=== PATIENT | male | born 1950 | race Caucasian/White ===

== ENCOUNTER 2020-06-15 16:02 | Emergency (ER) | payer MEDICAID, MEDICARE ==
--- NOTE | 2020-06-15 16:23 | EDM.PDOC ---
ED HPI GENERAL MEDICAL PROBLEM - General Stated Complaint: dog bite Time Seen by Provider: 06/15/20 16:10 Source of Information: Reports: Patient History Limitations: Reports: No Limitations - History of Present Illness INITIAL COMMENTS - FREE TEXT/NARRATIVE: Patient presented to the ED because of a dog bite on his left hand. He sustained a 1.5 cm laceration over the dorsum of the left hand. His dog is UTD with immunizations. - Related Data Allergies Allergy/AdvReac Type Severity Reaction Status Date / Time lisinopril Allergy Hallucinati Verified 11/02/16 13:27 ons Home Meds: Home Meds Allopurinol [Zyloprim] 100 mg PO DAILY 11/02/16 [History] Furosemide [Lasix] 20 mg PO DAILY 11/02/16 [History] Levothyroxine 75 mcg PO ACBREAKFAST 11/02/16 [History] Metoprolol Succinate 50 mg PO BID 11/02/16 [History] amLODIPine [Norvasc] 2.5 mg PO DAILY 11/02/16 [History] Amoxicillin/Potassium Clav [Augmentin 875-125 Tablet] 1 each PO BID #20 tablet 06/15/20 [Rx] Past Medical History Cardiovascular History: Reports: Hypertension Musculoskeletal History: Reports: Other (See Below) Other Musculoskeletal History: 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 - looking at bilateral TKA in the future Endocrine/Metabolic History: Reports: Hypothyroidism Social & Family History - Family History Family Medical History: Noncontributory - Caffeine Use Caffeine Use: Reports: None ED ROS GENERAL - Review of Systems Review Of Systems: See Below Constitutional: Reports: No Symptoms HEENT: Reports: No Symptoms Respiratory: Reports: No Symptoms Cardiovascular: Reports: No Symptoms Endocrine: Reports: No Symptoms GI/Abdominal: Reports: No Symptoms : Reports: No Symptoms Musculoskeletal: Reports: No Symptoms Skin: Reports: Wound Neurological: Reports: No Symptoms Psychiatric: Reports: No Symptoms ED EXAM, GENERAL - Physical Exam Exam: See Below Exam Limited By: No Limitations General Appearance: Alert, No Apparent Distress Eye Exam: Bilateral Eye: PERRL Ears: Normal External Exam, Normal Canal Nose: Normal Inspection, Normal Mucosa Throat/Mouth: Normal Inspection, Normal Lips, Normal Teeth, Normal Gums Head: Atraumatic, Normocephalic Neck: Normal Inspection, Supple, Non-Tender, Full Range of Motion Respiratory/Chest: No Respiratory Distress, Lungs Clear, Normal Breath Sounds, No Accessory Muscle Use, Chest Non-Tender Cardiovascular: Normal Peripheral Pulses, Regular Rate, Rhythm, No Edema, No Gallop GI/Abdominal: Normal Bowel Sounds, Soft, Non-Tender, No Organomegaly Back Exam: Normal Inspection, Full Range of Motion Extremities: Normal Inspection, Normal Range of Motion, Non-Tender Neurological: Alert, Oriented, CN II-XII Intact, Normal Cognition, Normal Gait Psychiatric: Normal Affect ED GENERAL MEDICAL PROCEDURES - Laceration/Wound Repair Left Dorsal Hand Lac/wound length in cm: 1.5 Appearance: Superficial Distal NVT: Neuro & Vascular Intact Skin Prep: Chlorhexidine (Hibiciens) Closed with: Dermabond, Steri-Strips Course - Vital Signs Text/Narrative:: Tdap Last Recorded V/S: Last Vital Signs Temp 36.2 C 06/15/20 16:02 Pulse 71 06/15/20 16:02 Resp 16 06/15/20 16:02 BP 183/87 H 06/15/20 16:02 Pulse Ox 96 06/15/20 16:02 - Orders/Labs/Meds Meds: Medications Discontinued Medications Generic Name Dose Route Start Last Admin Trade Name Eligioq PRN Reason Stop Dose Admin Diphtheria/Tetanus/Acell Pertussis 0.5 ml 06/15/20 16:42 06/15/20 16:56 Adacel IM 06/15/20 16:43 0.5 ml .ONCE ONE Administration Departure - Departure Time of Disposition: 16:20 Disposition: Home, Self-Care 01 Condition: Good Clinical Impression: Dog bite - Discharge Information Prescriptions: Amoxicillin/Potassium Clav [Augmentin 875-125 Tablet] 1 each PO BID #20 tablet Instructions: Animal Bite, Adult Referrals: Gordo Greco MD [Primary Care Provider] - Forms: ED Department Discharge Additional Instructions: Please read discharge on animal bite Take Augmentin 875 mg twice daily for 10 days Do not remove the steri strips, it will eventually fall off on it's own after 10-14 days Keep the wound dry for 3 days No need to apply an antibiotic ointment because you are taking an oral antibiotic Follow up as needed
[2020-06-15] MEDS ORDERED: Diphtheria,Pertussis(Acell),Tetanus Vaccine 0.5 ML SDV IM ONE (16:42)
[2020-06-15 20:26] VITALS: BP 183/87; PULSE 71
== END 2020-06-15 16:55 | disposition home or self-care (01) ==
LOC: FB.ED 16:02
DX: S61.452A Open bite of left hand, initial encounter (principal); I10 Essential (primary) hypertension; E03.9 Hypothyroidism, unspecified; Z88.8 Allergy status to other drugs, medicaments and biological substances; Z79.899 Other long term (current) drug therapy; Z23 Encounter for immunization; W54.0XXA Bitten by dog, initial encounter
CPT/HCPCS: 12001; 90471; 90715; 99283-25